=== PATIENT | male | born 1970 | race Two or more races ===

== ENCOUNTER → 2024-09-14 | Outpatient (CLI) | payer MEDICAID, SELFPAY ==
--- NOTE | 2024-09-14 13:00 | XR_ITS ---
Examination: Thyroid sonography complete TECHNIQUE: Grayscale sonographic images thyroid lobes with color flow analysis Exam date and time: September 14, 2024 1306 hours INDICATIONS: Thyromegaly on clinical examination 5 months ago. FINDINGS: Right thyroid 6.1 cm Large nodule replacing the right thyroid lobe, vascular, 4.9 x 3.0 x 3.8 cm Left thyroid 5.3 cm No solid nodules IMPRESSION: Large vascular right thyroid nodule 4.9 x 3.0 x 3.8 cm, suggest ultrasound-guided fine-needle aspiration of this nodule
== END | disposition home or self-care (01) ==
PROVIDERS: PCP Family Medicine
DX: E04.1 Nontoxic single thyroid nodule (principal)
CPT/HCPCS: 76536

== ENCOUNTER 2025-02-12 10:44 | Emergency (ER) | payer MEDICAID, SELFPAY ==
[2025-02-12 10:45] VITALS: BMI 30.1
[2025-02-12 11:01] VITALS: BP 159/90; PULSE 65; RESP 18; TEMP 37.1; O2SAT 98
--- NOTE | 2025-02-12 11:19 | XR_ITS ---
Examination: CT brain head without contrast. 2-D sagittal coronal reconstructions Date and time of exam:February 12, 2025, 1129 hrs., Comparison August 03, 2023. Indications: Onset of blurred vision visual disturbance today. CTDI: vol (mGy):50.1 DLP: (mGycm):1036 Technique: Multiple CT axial sections of the brain have been obtained, 5 mm slice thickness. Contrast has not been administered. 2-D sagittal, coronal reconstructions have been obtained Low dose protocols were performed. One or more of the following dose reduction techniques were used; automated exposure control, adjustment of the mA and/or KV according to patient size, use of iterative reconstruction technique. Findings: No significant ventricular enlargement. Intra-axial or extra-axial hemorrhage density is not seen. No mass effect or midline shift Basal cisterns are not remarkable. Fourth ventricle is midline. Cranial vault intact. Prominent ethmoid frontal sinusitis Impression: Negative for acute hemorrhage, mass effect or midline shift As clinically warranted, brain MRI MRA without contrast, stroke protocol, would best assess for acute ischemic change
--- NOTE | 2025-02-12 11:23 | PD.EDRME ---
Rapid Medical Screening Exam E Arrival date/time: 02/12/25 10:44 54-year-old male with a history of type 2 diabetes presents to the emergency room with a chief complaint of problems with his vision for the last 2 days. Patient states he has had worsening vision, blurry vision, spots in vision, and difficulty reading papers he was able to read 3 days ago. Patient states he was spraying chemicals outside his store 2 days ago and states that maybe it is related to that. I have greeted and performed a focused initial assessment of this patient. A comprehensive ED assessment and evaluation of the patient, analysis of all test results, and completion of the medical decision making process will be conducted by additional ED providers. Chief Complaint: Neuro Symptoms/Deficit Time Seen by Provider: 02/12/25 11:01 Vital signs: Vital Signs Temperature 98.8 F 02/12/25 11:01 Pulse Rate 65 02/12/25 11:01 Respiratory Rate 18 02/12/25 11:01 Blood Pressure 159/90 H 02/12/25 11:01 Pulse Oximetry (%) 98 02/12/25 11:01 Oxygen Delivery Method Room Air 02/12/25 11:01 Vital signs reviewed by provider: Yes
[2025-02-12 12:12] VITALS: BP 164/99; PULSE 66; RESP 16; TEMP 36.7; O2SAT 98
[2025-02-12] MEDS: TETRACAINE PF OP SOL 0.5% 4 ML DRPETTE 1 DROP BOTH EYES (13:22)
--- NOTE | 2025-02-12 14:17 | EDNOTE_ITS ---
<Statement entered by Denise Forrester MD - 02/28/25 06:12> As co-signing physician, I was present and available for consult prn. I concur with the plan and care as documented by the midlevel provider. Neuro Symptoms Deficit-RME/HPI General Chief Complaint: Neuro Symptoms/Deficit Stated Complaint: CAN'T SEE x 2 DAYS Time Seen by Provider: 02/12/25 11:01 Arrival date/time: 02/12/25 10:44 This is a 54-year-old male with a history of type 2 diabetes presents to the emergency room with a chief complaint of problems with his vision for the last 2 days. Patient states he has had worsening vision, blurry vision, and difficulty reading papers he was able to read 3 days ago. Patient states he was spraying chemicals outside his store 2 days ago and states that maybe it is related to that. Patient denies any eye pain. Patient able to drive and able to text on phone. Patient can but at times seems blurry to him. RME / HPI RME / HPI Narrative: 02/12/25 10:44 54-year-old male with a history of type 2 diabetes presents to the emergency room with a chief complaint of problems with his vision for the last 2 days. Patient states he has had worsening vision, blurry vision, spots in vision, and difficulty reading papers he was able to read 3 days ago. Patient states he was spraying chemicals outside his store 2 days ago and states that maybe it is related to that. I have greeted and performed a focused initial assessment of this patient. A comprehensive ED assessment and evaluation of the patient, analysis of all test results, and completion of the medical decision making process will be conducted by additional ED providers. Related Data Allergies Allergy/AdvReac Type Severity Reaction Status Date / Time No Known Allergies Allergy Verified 02/12/25 10:46 Review of Systems Review of Systems Systems Reviewed: All systems reviewed, normal except as documented Past Medical History Past Medical History CARDIAC: Negative Congestive Heart Failure RESPIRATORY: Negative Chronic Obstructive Pulmonary Disease (COPD) GENITOURINARY: Negative Renal Disease ENDOCRINE: Negative Diabetes Mellitus Type 1 or Diabetes Mellitus Type 2 Social History SMOKING STATUS: Never smoker ALCOHOL: Current ALCOHOL FREQUENCY: holidays/special occasions only Travel History EBOLA RISK: No ED Exam Narrative Physical exam: VITAL SIGNS: Reviewed. GENERAL APPEARANCE: Alert and interactive, follows commands, no acute distress HEAD AND FACE: Non-traumatic. ENT: PERRL, conjuctiva pink and clear, eyelid no trauma, Mucous membrane moist. NECK: Supple, nontender, no nuchal rigidity. CHEST: No tenderness, no crepitus, no paradoxical movement, no retractions. LUNGS: breathing even and unlabored HEART: Regular rate, cap refill less than 2 seconds ABDOMEN: Soft, nondistended NEUROLOGICAL: Gross motor function intact sensory function intact, Appropriate for age. MUSCULOSKELETAL: low back nontender, full range of motion. EXTREMITIES: No redness no swelling no skin breakdown on bilateral foot and leg. Distal neurovascular status intact bilateral foot SKIN: Color pink, dry, no rash, no lacerations. Course Quality Measures none Orders Category Date Time Status ED Eye Irrigation ONCE Care 02/12/25 11:19 Completed Visual Acuity X1 Care 02/12/25 11:[address] head/brain wo con Stat Exams 02/12/25 11:19 Completed TETRACAINE Op Daria 0.5% [Pontocaine Op Daria 0.5%] Med 02/12/25 13:14 Discontinued 1 drop BOTH EYES X1 ONE Vital Signs Vital signs: Vital Signs Temperature 98.8 F 02/12/25 11:01 Pulse Rate 65 02/12/25 11:01 Respiratory Rate 18 02/12/25 11:01 Blood Pressure 159/90 H 02/12/25 11:01 Pulse Oximetry (%) 98 02/12/25 11:01 Oxygen Delivery Method Room Air 02/12/25 11:01 Neuro Symptoms / Deficit MDM Narrative MDM Narrative:: Discussed case at length with . Baseline visual acuity was done on patient. Patient states that his right eye is always better than his left eye on a regular basis. I checked eye pressure right eye 13 and left eye 14. I flushed both eys with saline. Pt having no eye pain. Pt denies headache or any other symptoms. Nop focal deficits. Pt reports his son and he has been crying recently and does not know if it has to do with his symptoms. Pupillary light reflex intact bilaterally PERRLA. no nystagmus noted. Did do a fundus exam. Pt states he already has an apppointment with eye doctor in 2 days. Pt able to see but states he was having trouble reading small print but seems like he is reading his phoen with no issues. I explained to patient at length the importance of follow up with his primary provider and eye doctor. Pt verbalizes understanding. ct head: Findings: No significant ventricular enlargement. Intra-axial or extra-axial hemorrhage density is not seen. No mass effect or midline shift Basal cisterns are not remarkable. Fourth ventricle is midline. Cranial vault intact. Prominent ethmoid frontal sinusitis Impression: Negative for acute hemorrhage, mass effect or midline shift Patient data External records reviewed:: [facility] previous records Clinical information provided by:: patient Social determinants that could affect healthcare access:: none Patient has the following chronic illnesses:: none How is presenting disease/condition affected by chronic disease/condition?: no chronic disease Evaluation data The following diagnostics were reviewed and interpreted by me:: radiology exam(s) Lab and/or radiology exams considered but not ordered:: none Interpretation Summary: see note Medications / Prescriptions Medications or Prescriptions considered but not ordered:: none Medication administrations:: Medication Administration History Discontinued Medications Tetracaine HCl (Tetracaine Pf Op Daria 0.5% 4 Ml Drpette) 1 drop BOTH EYES X1 ONE Stop: 02/12/25 13:15 Last Admin: 02/12/25 13:22 Dose: 1 drop Documented By: YOLY Comments: given to [address] [facility] for administration see [facility] Consultations Consultation(s) initiated? (list below): No Diagnosis Neuro Differential Diagnosis: other (diabetic retinopathy, migraine, stroke ) Most likely diagnosis given after review of the tests above:: blurred vision Admission Indicated Admission indicated?: not indicated Admission Request Was there a request for admission?: No Disposition Plan Disposition Plan: Discharge Discharge Attestation Discharge Attestation: The patient and all family members were given an opportunity to ask questions and understood the discharge instructions. Discharge instructions specifically effects, indications for sooner follow up or return to the emergency department, and the expected course of current diagnosis. Patient condition: Stable Discharge Plan Plan Patient Disposition: HOME (Self Care) Patient condition on transfer: Stable Prescriptions/Referrals Referrals: Jose Harris PA-C [Primary Care Provider] - In 1 week Problem List Clinical Impression: Blurred vision, bilateral Patient/Caregiver Discharge Instructions Discharge Activity: activity as tolerated Education Materials: ED Blurred Vision Additional Instructions: Please keep scheduled appointment with eye doctor on 02/14/2025. Follow-up with primary provider in 1 to 2 days. [place]mak to the emergency room if symptoms change or worsen. Print Language: Maori Stand Alone Forms: Swetha Award Info., Patient Portal Info Letter PA/NETWORK CONTROL TECHNICIAN Supervising Physician PA/NETWORK CONTROL TECHNICIAN Supervising Physician: tanja
[2025-02-12 14:33] VITALS: BP 125/87; PULSE 64; RESP 17; TEMP 37.1; O2SAT 98
== END 2025-02-12 14:44 | disposition home or self-care (01) ==
PROVIDERS: Emergency Provider Emergency Medicine; PCP Physician Assistant
DX: H53.8 Other visual disturbances (principal)
CPT/HCPCS: 70450; 99284

== ENCOUNTER 2025-05-30 09:30 | Outpatient (RCR) | payer MEDICAID, SELFPAY ==
--- NOTE | 2025-05-18 12:51 | PT.OIERPT ---
PT OP Initial Eval Patient Information Outpatient Physical Therapy Treatment Date: 05/18/25 Visit Reasons: left knee pain Medical Diagnosis: Left Knee Pain Treatment Dx #1: Left Knee Pain Start of Care: 05/18/25 Date of Onset: 6 months ago Smoking Status Smoking Status: Current every day smoker Cessation Counseling Provided: RAISSA was advised that quitting smoking is the single most important factor to protect the health of themselves and their family. Discussed the benefits of quitting smoking with patient. Encouraged patient to quit smoking and provided Cessation assistance materials and resources. Tobacco Use: Cigarette Years smoked: 20 Are you interested in quitting?: No Would you like additional Smoking Cessation Counseling?: No Initial Assessment Subjective: Pt is a 54 y/o female reports of chronic left knee pain (8/10) worsening in the past 6 months. No MRI has been done thus far. Pt has limitation with walking, standing, chores, self care, cooking,cleaning, and work duties. Objective: Left Knee AROM: all motions are WFL Left Knee MMTs: grossly 4-/5 Left Hip MMTs: grossly 3+/5 Special Test (-) Gabe (-) ant knee compression test (+) lateral or medial stress test Assessment: Pt demonstrate left knee pain leading to difficulty with ADLs. Pt will attempt physical therapy if pain persist Pt will be refer back to provider for further consultation. Short Term and Geotechnical Field Technician Goals 1) Increase left knee AROM WNL in 6 wks to be able to perform chores 2) Decrease knee pain to 2/10 in 6 wks to be able to stand more than 30 mins 3) Increase left knee MMTs grossly to 4/5 in 6 wks to be able to perform stairs and steps 4) Increase left hip MMTs grossly to 4-/5 in 6 wks to be able to perform recreational activities 5) Indep with HEP Treatment Plan 1) Manual Therapy 2) Therapeutic Activities 3) Therapeutic Exercises 4) Modalities (ice, heat) 5) Balance Training 6) Gait Training Frequency and Duration: 2 x wk for 6 wks Certification Dates: 05/18/25 to 08/16/25 Procedure Charges OP PT Eval Mod Complex 30 minutes: Yes
--- NOTE | 2025-05-23 10:37 | PT.ODAYNRPT ---
PT Outpatient Daily Note OP Daily Note Outpatient Physical Therapy Treatment Date: 05/23/25 Visit Reasons: left knee pain Subjective: Pt reports L knee is good, has occasional pain usually worse with activity or prolonged time on feet. Objective: Please see flow sheet for ther ex list. Assessment: Interventions completed with no pain to report. Plan: Continue with poC. Length of Time (minutes) of Treatment: 30 Minutes Procedure Charges Therapeutic Exercise 30 minutes: Yes
--- NOTE | 2025-05-30 09:56 | PT.ODAYNRPT ---
PT Outpatient Daily Note OP Daily Note Outpatient Physical Therapy Treatment Date: 05/30/25 Visit Reasons: left knee pain Subjective: Pt's knee pain is about the same. Pt was working long hours yesterday and notice some pain. Objective: Please see flow chart for list of ther ex performed Assessment: tolerate exercises with minimal pain; however, no change in overall pain post PT session. Plan: Continue with PT Length of Time (minutes) of Treatment: 30 Minutes Procedure Charges Therapeutic Exercise 30 minutes: Yes
== END 2025-06-13 23:59 | disposition home or self-care (01) ==
LOC: CPTX 09:30
PROVIDERS: PCP Internal Medicine; Referring Provider Internal Medicine; Visit Provider Internal Medicine
DX: M25.562 Pain in left knee (principal); R26.2 Difficulty in walking, not elsewhere classified; G89.29 Other chronic pain; Z71.6 Tobacco abuse counseling; F17.210 Nicotine dependence, cigarettes, uncomplicated
CPT/HCPCS: 97110; 97162